=== PATIENT | female | born 1940 | race Caucasian/White ===

== ENCOUNTER → 2016-11-30 | Outpatient (REF) | payer MEDICARE ==
[~2016-11-30] MED LIST: ASPI1TAB PO; CRES5TAB PO; LISI-538 PO; NEXI40CA PO; VITA100037 PO
[2016-11-30 12:09] LABS: MEAN CORPUSCULAR HEMOGLOBIN 29.7 pg (27.0-33.0); MEAN CORPUSCULAR HGB CONC 31.6 g/dl (32.0-36.5); RED CELL DISTRIBUTION WIDTH 13.5 % (11.5-14.5); WHITE BLOOD COUNT 4.2 K/mm3 (4.0-10.0)
[2016-11-30 12:41] LABS: ALBUMIN 3.7 GM/DL (3.2-5.2); ALBUMIN/GLOBULIN RATIO 1.03 (1.00-1.93); ALKALINE PHOSPHATASE 66 U/L (45-117); ALT/SGPT 29 U/L (12-78); ANION GAP 8 MEQ/L (8-16); AST/SGOT 23 U/L (15-37); BILIRUBIN,TOTAL 0.5 MG/DL (0.2-1.0); BLOOD UREA NITROGEN 12 MG/DL (7-18); CALCIUM LEVEL 9.2 MG/DL (8.8-10.2); CARBON DIOXIDE LEVEL 31 MEQ/L (21-32); CHLORIDE LEVEL 103 MEQ/L (98-107); CHOLESTEROL LEVEL 128 MG/DL (<200); CREATININE FOR GFR 0.92 MG/DL (0.55-1.02); GLOMERULAR FILTRATION RATE > 60.0 (>39); GLUCOSE, FASTING 89 MG/DL (83-110); SODIUM LEVEL 142 MEQ/L (136-145); TOTAL PROTEIN 7.3 GM/DL (6.4-8.2); TRIGLYCERIDES LEVEL 99 MG/DL (<150)
[2016-11-30 12:43] LABS: POTASSIUM SERUM 5.2 MEQ/L (3.5-5.1)
== END ==
LOC: M LABDRAW1 11:24
PROVIDERS: ATTEND Family Medicine
DX: I10 Essential (primary) hypertension (principal); L65.9 Nonscarring hair loss, unspecified

== ENCOUNTER → 2016-12-03 | Outpatient (CLI) | payer MEDICARE ==
--- NOTE | 2016-12-03 17:28 | REPMRS ---
Patient History The patient states she has not had a clinical breast exam in over a year. Patient is postmenopausal, has history of other cancer at age 73, and has history of cancer in the left breast at age 65. Family history of prostate cancer in brother at age 75. Malignant quadrectomy of the left breast, 2006. Radiation therapy of the left breast, 2006. Took tamoxifen for 5 years. Digital Woman Screen Mammo: December 03, 2016 - Exam #: [id number] Bilateral CC and MLO view(s) were taken. Technologist: Ely Shepard, Technologist Prior study comparison: November 12, 2015, digital woman screen mammo performed at [facility]. October 07, 2014, digital woman screen mammo performed at [facility]. FINDINGS: There are scattered fibroglandular densities. There has been no change in the appearance of the mammogram from the prior studies. There is a mild amount of residual fibroglandular tissue which is fairly symmetric. There is no interval development of dominant mass, architectural distortion, or clustered microcalcification suggestive of malignancy. ASSESSMENT: BI-RADS/ACR category 1 mammogram. Negative. Recommendation Routine screening mammogram in 1 year (for women over age 40). This mammogram was interpreted with the aid of an FDA-approved computer-aided dectection system. Electronically Signed By: Jeffrey Martinez MD 12/03/16 [id number]
== END ==
LOC: M WHC 14:17
PROVIDERS: ATTEND Family Medicine
DX: Z12.31 Encounter for screening mammogram for malignant neoplasm of breast (principal); Z85.3 Personal history of malignant neoplasm of breast; Z79.810 Long term (current) use of selective estrogen receptor modulators (SERMs)

== ENCOUNTER → 2017-12-06 | Outpatient (CLI) | payer MEDICARE | LOC: M WHC 10:46 | DX: Z12.31 Encounter for screening mammogram for malignant neoplasm of breast (principal); Z78.0 Asymptomatic menopausal state; Z85.3 Personal history of malignant neoplasm of breast; Z80.42 Family history of malignant neoplasm of prostate | CPT/HCPCS: 77067 ==

== ENCOUNTER → 2018-12-07 | Outpatient (CLI) | payer MEDICARE ==
[~2018-12-07] MED LIST changes: -VITA100037 PO; +VITA100067 PO
--- NOTE | 2018-12-07 18:19 | REPMRS ---
Patient History The patient states she has not had a clinical breast exam in over a year. Family history of prostate cancer at age 75 in brother. Malignant quadrectomy of the left breast, 2006. Radiation therapy of the left breast, 2006. Took tamoxifen for 5 years. Digital Woman Screen Mammo: December 07, 2018 - Exam #: [id number] Bilateral CC and MLO view(s) were taken. Technologist: Tita Olvera, Technologist Prior study comparison: December 06, 2017, digital woman screen mammo performed at [facility]. December 03, 2016, digital woman screen mammo performed at [facility]. FINDINGS: There are scattered fibroglandular densities. There has been no change in the appearance of the mammogram from the prior studies. There is a mild amount of residual fibroglandular tissue which is fairly symmetric. There is no interval development of dominant mass, architectural distortion, or clustered microcalcification suggestive of malignancy. Prior lumpectomy changes in the left breast stable with scar, retraction and clips as before. Scattered lymph nodes are seen in the axillae. There are benign bilateral arterial calcifications noted. 3-D tomosynthesis shows no additional findings. No significant changes when compared with prior studies. Assessment: BI-RADS/ACR category 2 mammogram. Benign Findings. Recommendation Routine screening mammogram in 1 year (for women over age 40). This mammogram was interpreted with the aid of an FDA-approved computer-aided dectection system. A. Negative x-ray reports should not delay biopsy if a dominant or clinically suspicious mass is present. B. Four to eight percent of cancers are not identified by mammography. C. Adenosis and dense breast may obscure an underlying neoplasm. Electronically Signed By: Kapil Paz MD 12/07/18 [id number]
== END ==
LOC: M WHC 10:37
PROVIDERS: ATTEND Family Medicine
DX: Z12.31 Encounter for screening mammogram for malignant neoplasm of breast (principal)

== ENCOUNTER → 2019-01-18 | Outpatient (REF) | payer MEDICARE ==
[~2019-01-18] MED LIST changes: -ASPI1TAB PO; +ASPI81TA26 PO
== END ==
LOC: M LAB LCGH 10:29
PROVIDERS: ATTEND Physician Assistant
DX: C44.81 Basal cell carcinoma of overlapping sites of skin (principal)

== ENCOUNTER → 2020-06-26 | Outpatient (CLI) | payer MEDICARE ==
--- NOTE | 2020-06-26 16:08 | REPMRS ---
Patient History The patient states she has not had a clinical breast exam in over a year. Family history of prostate cancer at age 75 in brother. Malignant quadrectomy of the left breast, 2006. Radiation therapy of the left breast, 2006. Took tamoxifen for 5 years. 3D TOMOSYNTHESIS WAS PERFORMED. NAZANIN Perry. Digital Woman Screen Mammo: June 26, 2020 - Exam #: [id number] Bilateral CC and MLO view(s) were taken. Technologist: Sally Mann, Technologist Prior study comparison: December 07, 2018, bilateral digital woman screen mammo performed at [facility]. December 06, 2017, digital woman screen mammo performed at [facility]. FINDINGS: There are scattered fibroglandular densities. There has been no change in the appearance of the mammogram from the prior studies. There is a mild amount of residual fibroglandular tissue which is fairly symmetric. There is no interval development of dominant mass, architectural distortion, or clustered microcalcification suggestive of malignancy. Assessment: BI-RADS/ACR category 1 mammogram. Negative Mammogram. Recommendation Routine screening mammogram in 1 year (for women over age 40). This mammogram was interpreted with the aid of an FDA-approved computer-aided dectection system. Electronically Signed By: Jeffrey Martinez MD 06/26/20 [id number]
== END ==
LOC: M WHC 14:22
PROVIDERS: ATTEND Family Medicine
DX: Z12.31 Encounter for screening mammogram for malignant neoplasm of breast (principal); Z80.42 Family history of malignant neoplasm of prostate; Z85.3 Personal history of malignant neoplasm of breast; Z92.3 Personal history of irradiation; Z92.29 Personal history of other drug therapy

== ENCOUNTER 2021-08-23 08:59 | Emergency (ER) | payer MEDICARE ==
[~2021-08-23] VITALS: Ht 162.6 cm; Wt 75.6 kg
[~2021-08-23 08:59] MED LIST changes: -LISI-538 PO; +LISI20TA33 PO
--- OUTSIDE RECORDS SUMMARY | 2021-08-23 09:06 | CCD ---
Author Author [facility] Organization [facility] Address Unknown Phone Unavailable Care Team Providers Care Transportation Worker Name Role Phone Jonny FALL MD Unavailable Unavailable Jonny FALL MD Unavailable Unavailable Jonny FALL MD Unavailable Unavailable Jonny FALL MD Unavailable Unavailable Jonny FALL MD Unavailable Unavailable Jonny FALL MD Unavailable Unavailable Jonny FALL MD Unavailable Unavailable Jonny FALL MD Unavailable Unavailable Jonny FALL MD Unavailable Unavailable Jonny FALL MD Unavailable Unavailable Jonny FALL MD Unavailable Unavailable Jonny FALL MD Unavailable Unavailable Jonny FALL MD Unavailable Unavailable Jonny FALL MD Unavailable Unavailable Jonny FALL MD Unavailable Unavailable Jonny FALL MD Unavailable Unavailable Jonny FALL MD Unavailable Unavailable Jonny FALL MD Unavailable Unavailable Jonny FALL MD Unavailable Unavailable Jonny FALL MD Unavailable Unavailable Jonny FALL MD Unavailable Unavailable Jonny FALL MD Unavailable Unavailable Jonny FALL MD Unavailable Unavailable Jonny FALL MD Unavailable Unavailable Taya, Brenna PA Unavailable Unavailable Taya, Brenna PA Unavailable Unavailable Taya, Brenna PA Unavailable Unavailable Taya, Brenna PA Unavailable Unavailable Taya, Brenna PA Unavailable Unavailable Taya, Brenna PA Unavailable Unavailable Taya, Brenna PA Unavailable Unavailable Taya, Brenna PA Unavailable Unavailable Taya, Brenna PA Unavailable Unavailable TayaBrenna Unavailable Unavailable Re-disclosure Warning The records that you are about to access may contain information from federally-assisted alcohol or drug abuse programs. If such information is present, then the following federally mandated warning applies: This information has been disclosed to you from records protected by federal confidentiality rules (42 CFR part 2). The federal rules prohibit you from making any further disclosure of this information unless further disclosure is expressly permitted by the written consent of the person to whom it pertains or as otherwise permitted by 42 CFR part 2. A general authorization for the release of medical or other information is NOT sufficient for this purpose. The Federal rules restrict any use of the information to criminally investigate or prosecute any alcohol or drug abuse patient.The records that you are about to access may contain highly sensitive health information, the redisclosure of which is protected by Article 27-F of the [facility] Public Health law. If you continue you may have access to information: Regarding HIV / AIDS; Provided by facilities licensed or operated by the [facility] Office of Mental Health; or Provided by the [facility] Office for People With Developmental Disabilities. If such information is present, then the following [facility] mandated warning applies: This information has been disclosed to you from confidential records which are protected by state law. State law prohibits you from making any further disclosure of this information without the specific written consent of the person to whom it pertains, or as otherwise permitted by law. Any unauthorized further disclosure in violation of state law may result in a fine or half-way sentence or both. A general authorization for the release of medical or other information is NOT sufficient authorization for further disc losure. Family History Family Member Name Family Member Gender Family Member Status Date o f Status Description Data Source(s) Unknown Male Problem MEDENT ([facility]) Unknown Male Problem [facility] ([facility]) Unknown Male Problem [facility] ([facility]) Unknown Male Problem [facility]ENT ([facility]) Encounters Encounter Providers Location Date Indications Data Source(s ) Outpatient Attender: RUCHI FALL MD 08/23 07:55:48 AM EST - 08/23/2021 08:33:59 AM EST [facility] ([facility] ) Outpatient [address] [address] 05/22/2021 12:00:00 AM EDT eCW1 ([facility]) Outpatient Attender: Brenna CLARK 0 01/12/2021 02:51:11 PM EDT - 01/12/2021 03:29:18 PM EDT [facility] ([facility]) Immunizations Vaccine Date Status Description Data Source(s) COVID-19 VACCINE Moderna 03/09/2021 12:00:00 AM EDT completed [facility]IS Vaccine Series Complete: YESThis Data wa s Submitted to [facility] Via [employer] COVID-19 VACCINE Moderna 02/06/2021 12:00:00 AM EDT completed [facility] Vaccine Series Complete: NOThis Data was Submitted to [facility] Via [employer] Medications Medication Brand Name Start Date Product Form Dose Route Admi nistrative Instructions Pharmacy Instructions Status Indications Reaction Description Data Source(s) alclometasone dipropionate 0.0005 MG/MG Topical Ointment Alclometasone Dipropionate 0.05 % Alclometasone Dipropionate 0.05 % 05/22/2021 12:00:00 AM EDT 1.0 {application} active Alclom etasone Dipropionate 0.05 % eCW1 ([facility]) Triamcinolone Acetonide 1 MG/ML Topical Cream Triamcin olone Acetonide 0.1 % Triamcinolone Acetonide 0.1 % 01/30/2021 12:00:00 AM EDT 1.0 {appli cation} active Triamcinolone Acetonide 0 .1 % eCW1 ([facility]) Insurance Providers Payer name Policy type / Coverage type Policy ID Covered republican ID Covered republican's relationship to alas Policy Alas Plan Information [id number] WYE3 [id number] A [facility] (ak) Medigap Part B [id number] Self MEDICARE COMPLETE [id number] SP [id number] [employer] [id number] Self [id number] [employer]. [id number] Self [id number] [employer] [id number] Self [id number] MEDICARE COMPLETE [id number] SP [id number] MEDICARE COMPLETE-UHC O [id number] S [id number] MEDICARE COMPLETE [id number] SP [id number] MEDICARE COMPLETE-UHC O [id number] S [id number] TODAYS OPTIONS [id number] [place] [id number] MEDICARE COMPLETE-UHC O [id number] S [id number] MEDICARE COMPLETE [id number] SP [id number] EXCELLUS BCBS S [id number] S P [id number] [place] 280/[id number] SP [id number] [facility] Commercial [id number] Self MEDICARE COMPLETE [id number] SP [id number] MEDICARE COMPLETE [id number] SP [id number] Problems, Conditions, and Diagnoses Code Display Name Description Problem Type Effective Dates Data Source(s) L40.8 [id number] Sebopsoriasis Problem 05/22/2021 12:00:00 AM EDT eCW1 ([facility]) Surgeries/Procedures No Information Results ID Date Data Source [id number] 01/14/2021 06:49:00 PM EDT [facility] Name Value Range Interpretation Code Description Data Zulay rce(s) Supporting Document(s) SARS-CoV-2 IgG Serum <0.20 AU/mL <1.00 [facility] A result less than 1.00 AU/mL is conside red to be negative. PositiveIgG antibody results are often present later in the infectious process(from 7 days onward). Results will be reported to government agenciesas required.The [employer] DZ-Lite SARS-CoV-2 IgG CLIA assay has received EmergencyUse Authorization (EUA). We will continue to follow federal and staterequirements for COVID-19 reporting. This test was developed and itsperformance characteristics determined by [employer] Ithas not been reviewed, cleared or approved by the U.S. Food and DrugAdministration (FDA) but has been given emergency use authorization.This test is used for clinical purposes. It should not be regarded asinvestigational or for research. Results should be used in conjunctionwith clinical findings and should not form the sole basis for adiagnosis or treatment decision. Methods: SARS-CoV-2 IgG:Chemiluminescent Immunoassay. Procedure Social History Code Duration Value Status Description Data Source(s ) Smoking 05/22/2021 12:00:00 AM EDT UNK completed eCW1 ([facility]) Vital Signs ID Date Data Source UNK Name Value Range Interpretation Code Description Data Source(s) Body weight 165 [lb_av] 165 [lb_av] eCW1 ([facility]) Body weight 74.84 kg 74.84 kg eCW1 ([facility]) Body height [in_i] eCW1 ([facility]) Body mass index (BMI) [Ratio] 28.32 kg/m2 28.32 kg/m2 eCW1 ([facility]) Systolic blood pressure 126 mm[Hg] 126 mm[Hg] e CW1 ([facility]) Diastolic blood pressure 74 mm[Hg] 74 mm[Hg] eCW1 ([facility]) Patient Treatment Plan of Care Planned Activity Planned Date Details Description Data Source (s) alclometasone dipropionate 0.0005 MG/MG Topical Ointme nt 05/22/2021 12:00:00 AM EDT eCW1 ([facility])
--- OUTSIDE RECORDS SUMMARY | 2021-08-23 09:06 | CCD ---
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 593480 04 ALLERGIES Allergen (clinical drug ingredient) Drug/Non Drug Allergy do cumented on EMR Reaction Allergy Type Onset Date Status codeine Codeine Sulfate([facility] Code:[address]-95) Nausea/Vomiting Dr jaquan Allergy Active Sulfa (for allergy use only) Hives Drug Allergy Active ENCOUNTERS from 1940 to 2021-05-25 Encounter Location Date Provider Diagnosis [facility] D[facility] [address] [place] [address] [place] [address] May, Lorena Alexander Sebopsoriasis L40.8 IMMUNIZATIONS Vaccine Route Administration Date Status TDAP VFC 0.5mL Boostrix IM Intramuscular Aug 08, 2017 Adminis tered SOCIAL HISTORY Tobacco Use: Social History Observation Description Date Details (start date - stop date) never smoker Sex Assigned At : Social History Observation Description Sex Assigned At Unknown Language: Question Answer Notes Languages spoken: Thai Hindu: Question Answer Notes Hindu No hoahaoism beliefs that would impact health care. Tobacco Use: Question Answer Notes Are you a: never smoker REASON FOR REFERRAL No Information VITAL SIGNS Weight 165 lbs May, Weight-kg 74.84 kg May, Height 5'4" in May, BMI 28.32 kg/m2 May, Blood pressure systolic 126 mm Hg May, Blood pressure diastolic 74 mm Hg May, MEDICATIONS Medication SIG (Take, Route, Frequency, Duration) Notes Start Da te End Date Status Rosuvastatin Calcium 5 MG 1 tablet Orally 1 tab every other day Not-Taking Alclometasone Dipropionate 0.05 % 1 application Night Auditor ally Twice a day for 5 days May, Active Crestor prn Active Triamcinolone Acetonide 0.1 % 1 application Externally Twice a day to R wrist for 14 days Jan, Active NexIUM 22.3 2 tab Orally once a day Active Lisinopril 10 20 mg 1 tab oral Daily Active Augmentin 875-125 MG 1 tablet Orally every 12 hrs for 10 day(s) Jul, Not-Taking Alendronate Sodium 70 MG 1 tablet orally once a week Not-Taking Vitamin D-3 1000 UNIT 1 capsule Orally Daily Active Aspirin 81 81 MG 1 tablet Orally Once a day for 30 day(s) Active PROCEDURES No Information RESULTS No Results REASON FOR VISIT rash on rt eyelid MEDICAL (GENERAL) HISTORY Type Description Date Medical History HTN Medical History GERD Medical History Hypercholesterolnemia Medical History Breast Cancer 2006 Medical History Melanoma Surgical History Tonsillectomy Surgical History hysterectomy Surgical History cholecystectomy Goals Section No Information Health Concerns No Information MEDICAL EQUIPMENT No Information MENTAL STATUS No Information FUNCTIONAL STATUS No Information ASSESSMENTS Encounter Date Diagnosis Assessment Notes Treatment Notes Treatm ent Clinical Notes May, Sebopsoriasis (ICD-10 - L40.8) PLAN OF TREATMENT Medication Medication Name Sig Start Date Stop Date Alclometasone Dipropionate 0.05 % 1 application Night Auditor ally Twice a day for 5 days May, Next Appt Details Provider Name:Lorena Alexander, 10:15:00 AM, [address], , [place], [place], [facility], Insurance Providers Payer Name Payer Address Payer Phone Insured Name Patient Relati onship to Insured Coverage Start Date Coverage End Date MEDICARE COMPLETE [facility] [address] [address] [facility] [phone] DENISSE MOTTA self
--- OUTSIDE RECORDS SUMMARY | 2021-08-23 10:22 | CCD ---
Author Author [facility] Organization [facility] Address Unknown Phone Unavailable Care Team Providers Care Ice Seller Name Role Phone Jonny FALL MD Unavailable [...] is protected by Article 27-F of the [facility] Public Health law. If you continue you may have access to information: Regarding HIV / AIDS; Provided by facilities licensed or operated by the [facility] Office of Mental Health; or Provided by the [facility] Office for People With Developmental Disabilities. If such information is present, then the following [facility] mandated warning applies: This information has [...] law may result in a fine or fdc sentence or both. A general authorization for the release of medical or other information is NOT sufficient authorization for further disc losure. Family History Family Member Name Family Member Gender Family Member Status Date o f Status Description Data Source(s) Unknown Male Problem MEDENT ([facility]) Unknown Male Problem [facility]ENT ([facility]) Unknown Male Problem [facility] ([facility]) Unknown Male Problem [facility] ([facility]) Encounters Encounter Providers Location Date Indications Data Source(s ) Outpatient Attender: RUCHI FALL MD 08/23 07:55:48 AM EST - 08/23/2021 08:33:59 AM EST [facility] ([facility] ) [place]patient [address] [place] [address] 05/22/2021 12:00:00 AM EDT eCW1 ([facility]) Outpatient Attender: Brenna CLARK 0 01/12/2021 02:51:11 PM EDT - 01/12/2021 03:29:18 PM EDT [facility] ([facility]) Immunizations Vaccine Date Status Description Data Source(s) COVID-19 VACCINE Moderna 03/09/2021 12:00:00 AM EDT completed [facility] Vaccine Series Complete: YESThis Data wa s Submitted to [facility] Via [employer]. COVID-19 VACCINE Moderna 02/06/2021 12:00:00 AM EDT completed [facility] Vaccine Series Complete: NOThis Data was Submitted to [facility] Via [employer]. Medications Medication Brand Name Start Date Product Form Dose Route Admi nistrative Instructions Pharmacy Instructions Status Indications Reaction Description Data Source(s) alclometasone dipropionate 0.0005 MG/MG Topical Ointment Alclometasone Dipropionate 0.05 % Alclometasone Dipropionate 0.05 % 05/22/2021 12:00:00 AM EDT 1.0 {application} active Alclom etasone Dipropionate 0.05 % eCW1 ([facility]) Triamcinolone Acetonide 1 MG/ML Topical Cream Triamcin olone Acetonide 0.1 % Triamcinolone Acetonide 0.1 % 01/30/2021 12:00:00 AM EDT 1.0 {appli cation} active Triamcinolone Acetonide 0 .1 % eCW1 ([facility]) Insurance Providers Payer name Policy type / Coverage type Policy ID Covered green party ID Covered green party's relationship to alas Policy Alas Plan Information [id number] WYE3 [id number] A [facility] ([place]) Medigap Part B [id number] Self MEDICARE COMPLETE [id number] SP [id number] [employer] [id number] Self [id number] [employer] [id number] Self [id number] [employer] [id number] Self [id number] MEDICARE COMPLETE [id number] SP [id number] MEDICARE COMPLETE-UHC O [id number] S [id number] MEDICARE COMPLETE [id number] SP [id number] MEDICARE COMPLETE-UHC O [id number] S [id number] TODAYS OPTIONS [id number] [place] [id number] MEDICARE COMPLETE-UHC O [id number] S [id number] MEDICARE COMPLETE [id number] SP [id number] [employer] BCBS S [id number] S P [id number] BCBS OF [place] 280/780 [id number] SP [id number] [facility] Commercial [id number] Self MEDICARE COMPLETE [id number] SP [id number] MEDICARE COMPLETE [id number] SP [id number] Problems, Conditions, and Diagnoses Code Display Name Description Problem Type Effective Dates Data Source(s) L40.8 [id number] Sebopsoriasis Problem 05/22/2021 12:00:00 AM EDT eCW1 ([facility]) Surgeries/Procedures No Information Results ID Date Data Source [id number] 01/14/2021 06:49:00 PM EDT [facility] Name Value Range Interpretation Code Description Data Zulay rce(s) Supporting Document(s) SARS-CoV-2 IgG Serum <0.20 AU/mL <1.00 [facility] A result less than 1.00 AU/mL is conside red to be negative. PositiveIgG antibody results are often present later in the infectious process(from 7 days onward). Results will be reported to government agenciesas required.The [employer] DZ-Lite SARS-CoV-2 IgG CLIA assay has received EmergencyUse Authorization (EUA). We will continue to follow federal and staterequirements for COVID-19 reporting. This test was developed and itsperformance characteristics determined by [employer]. Ithas not been reviewed, cleared or approved [...] 05/22/2021 12:00:00 AM EDT UNK completed eCW1 ([facility]) Vital Signs ID Date Data Source UNK Name Value Range Interpretation Code Description Data Source(s) Body weight 165 [lb_av] 165 [lb_av] eCW1 ([facility]) Body weight 74.84 kg 74.84 kg eCW1 ([facility]) Body height [in_i] eCW1 ([facility]) Body mass index (BMI) [Ratio] 28.32 kg/m2 28.32 kg/m2 eCW1 ([facility]) Systolic blood pressure 126 mm[Hg] 126 mm[Hg] e CW1 ([facility]) Diastolic blood pressure 74 mm[Hg] 74 mm[Hg] eCW1 ([facility]) Patient Treatment Plan of Care Planned Activity Planned Date Details Description Data Source (s) alclometasone dipropionate 0.0005 MG/MG Topical Ointme nt 05/22/2021 12:00:00 AM EDT eCW1 ([facility])
[2021-08-23 10:25] LABS: BASO # 0.1 10^3/uL (0.0-0.2); BASO % 1.4 % (0.0-1.0); EOS # 0.1 10^3/uL (0.0-0.5); EOS % 1.6 % (0.0-3.0); HEMATOCRIT 47.6 % (36.0-47.0); HEMOGLOBIN 14.8 g/dl (12.0-15.5); LYMPH # 1.2 10^3/uL (1.5-5.0); LYMPH % 18.1 % (24.0-44.0); MEAN CORPUSCULAR HEMOGLOBIN 28.8 pg (27.0-33.0); MEAN CORPUSCULAR HGB CONC 31.1 g/dl (32.0-36.5); MEAN CORPUSCULAR VOLUME 92.6 fl (80.0-96.0); MONO # 0.6 10^3/uL (0.0-0.8); MONO % 8.6 % (2.0-8.0); NEUTROPHILS # 4.5 10^3/uL (1.5-8.5); PLATELET COUNT, AUTOMATED 248 10^3/uL (150-450); RED BLOOD COUNT 5.14 10^6/uL (4.00-5.40); WHITE BLOOD COUNT 6.4 10^3/uL (4.0-10.0)
--- NOTE | 2021-08-23 10:44 | REP ---
INDICATION: cough. COMPARISON: PA chest with ribs 10/14/2014. TECHNIQUE: AP portable seated FINDINGS: Lungs are well inflated. CP angles are sharply defined. Subtle patchy atelectasis or infiltrate above the right diaphragm. Some minor right infrahilar patchy density as well. Lung schmidt are otherwise clear. There is hyperinflation and emphysematous changes mid and upper lung zones. Heart size not enlarged. The aorta is calcified at the arch and mildly tortuous but unchanged. Airway midline. Bones demineralized. There are surgical clips in the left axilla and anterior left chest wall from prior breast surgery and axillary lymph node dissection. No free air under the diaphragm. IMPRESSION: 1. Patchy right base atelectasis or infiltrates above the right diaphragm in the infrahilar region. No dense consolidation or effusion. 2. Some bullous emphysematous changes mid and upper lung zones. 3. No cardiomegaly or pulmonary edema. A tortuous calcified aorta noted. 4. Bones demineralized. <Electronically signed by Kapil Paz > 08/23/21 [id number]
[2021-08-23 10:50] LABS: BLOOD UREA NITROGEN 10 MG/DL (7-18); CALCIUM LEVEL 9.8 MG/DL (8.8-10.2); CARBON DIOXIDE LEVEL 29 MEQ/L (21-32); CHLORIDE LEVEL 106 MEQ/L (98-107); CK-MB VALUE MASS 1.4 NG/ML (<3.6); CPK CREATINE PHOSPHOKINASE 191 U/L (26-192); CREATININE FOR GFR 0.96 MG/DL (0.55-1.30); GLOMERULAR FILTRATION RATE 59.2 (>32); GLUCOSE, FASTING 92 MG/DL (70-100); MB/CK RELATIVE INDEX 0.73 (< OR =4); SODIUM LEVEL 141 MEQ/L (136-145); TROPONIN I < 0.02 NG/ML (< 0.10)
[2021-08-23 11:40] VITALS: BP 157/81
--- NOTE | 2021-08-23 20:20 | ECGEPIP ---
[facility] - ED Test Date: 2021-08-23 Pat Name: DENISSE MOTTA Department: Room: - Gender: Female Partnership Marketing Manager: DANETTE : 1940 Requested By: Larry Puga Order Number: [id number] Reading MD: Larry Mart Measurements Intervals [place] Rate: 68 P: 13 UT: 168 QRS: -41 QRSD: 88 T: 23 QT: 428 QTc: 455 Interpretive Statements Normal sinus rhythm Left axis deviation BASELINE ARTIFACT AFFECTS INTERPRETATION SIMILAR TO 11/30/15 Electronically Signed on 08-23-2021 20:20:04 EST by Larry Mart
== END 2021-08-23 12:03 | disposition home or self-care (01) ==
LOC: M ED 08:59
DX: J00 Acute nasopharyngitis [common cold] (principal); I70.0 Atherosclerosis of aorta; J43.9 Emphysema, unspecified; R93.89 Abnormal findings on diagnostic imaging of other specified body structures; I10 Essential (primary) hypertension; E78.5 Hyperlipidemia, unspecified; K21.9 Gastro-esophageal reflux disease without esophagitis; Z85.3 Personal history of malignant neoplasm of breast; Z79.899 Other long term (current) drug therapy; Z88.2 Allergy status to sulfonamides; Z88.5 Allergy status to narcotic agent

== ENCOUNTER → 2022-07-30 | Outpatient (CLI) | payer MEDICARE | LOC: M WHC 11:19 | PROVIDERS: ATTEND Family Medicine | DX: Z12.31 Encounter for screening mammogram for malignant neoplasm of breast (principal); M81.0 Age-related osteoporosis without current pathological fracture ==

== ENCOUNTER → 2022-08-04 | Outpatient (CLI) | payer MEDICARE | LOC: M WHC 09:24 | PROVIDERS: ATTEND Family Medicine | DX: N64.4 Mastodynia (principal) | CPT/HCPCS: 76642; 77066; G0279 ==

== ENCOUNTER → 2022-08-13 | Outpatient (REF) | payer MEDICARE ==
[2022-08-13 10:41] LABS: HEMATOCRIT 45.7 % (36.0-47.0); HEMOGLOBIN 13.9 g/dl (12.0-15.5); MEAN CORPUSCULAR HEMOGLOBIN 28.3 pg (27.0-33.0); MEAN CORPUSCULAR HGB CONC 30.4 g/dl (32.0-36.5); MEAN CORPUSCULAR VOLUME 92.9 fl (80.0-96.0); PLATELET COUNT, AUTOMATED 221 10^3/uL (150-450); RED BLOOD COUNT 4.92 10^6/uL (4.00-5.40); WHITE BLOOD COUNT 6.1 10^3/uL (4.0-10.0)
[2022-08-13 11:22] LABS: ALBUMIN 3.4 GM/DL (3.2-5.2); BILIRUBIN,TOTAL 0.3 MG/DL (0.2-1.0); CALCIUM LEVEL 9.6 MG/DL (8.8-10.2); CHOLESTEROL RISK RATIO 3.377 (<5); CREATININE FOR GFR 0.96 MG/DL (0.55-1.30); GLOMERULAR FILTRATION RATE 59.1 (>32); POTASSIUM SERUM 4.4 MEQ/L (3.5-5.1); TOTAL PROTEIN 7.4 GM/DL (6.4-8.2)
[2022-08-13 12:10] LABS: TOTAL 25(OH) VITAMIN D 32.3 NG/ML (30.0-100.0)
== END ==
LOC: M PLALAB 09:53
PROVIDERS: ATTEND Family Medicine
DX: E55.9 Vitamin D deficiency, unspecified (principal); I10 Essential (primary) hypertension

== ENCOUNTER → 2022-08-18 | Outpatient (REF) | payer MEDICARE | LOC: M SFHCDERM 14:42 | PROVIDERS: ATTEND Physician Assistant | DX: L82.1 Other seborrheic keratosis (principal); C44.702 Unspecified malignant neoplasm of skin of right lower limb, including hip | CPT/HCPCS: 11102; 11103; 17000; 17003; 17110; 88305; G0463 ==

== ENCOUNTER → 2022-08-24 | Outpatient (CLI) | payer MEDICARE ==
[~2022-08-24] MED LIST changes: +**SFHN** LIDOCAINE 1% MDV 20ML VIAL ONE; +**SFHN** SODIUM BICARBONATE 8.4% 10MEQ 10ML VIAL ONE
[2022-08-24 10:48] VITALS: BP 112/64
== END ==
LOC: M WHCPRO 09:35
PROVIDERS: ATTEND Family Medicine
DX: D48.61 Neoplasm of uncertain behavior of right breast (principal)

== ENCOUNTER → 2022-09-29 | Outpatient (CLI) | payer MEDICARE ==
[~2022-09-29] MED LIST changes: -**SFHN** LIDOCAINE 1% MDV 20ML VIAL ONE; -**SFHN** SODIUM BICARBONATE 8.4% 10MEQ 10ML VIAL ONE
[2022-09-29 14:59] LABS: BASO # 0.1 10^3/uL (0.0-0.2); BASO % 1.6 % (0.0-1.0); EOS # 0.1 10^3/uL (0.0-0.5); EOS % 2.2 % (0.0-3.0); HEMATOCRIT 44.7 % (36.0-47.0); HEMOGLOBIN 13.5 g/dl (12.0-15.5); LYMPH # 1.6 10^3/uL (1.5-5.0); LYMPH % 24.6 % (24.0-44.0); MEAN CORPUSCULAR HEMOGLOBIN 27.8 pg (27.0-33.0); MEAN CORPUSCULAR HGB CONC 30.2 g/dl (32.0-36.5); MEAN CORPUSCULAR VOLUME 92.2 fl (80.0-96.0); MONO # 0.7 10^3/uL (0.0-0.8); MONO % 11.3 % (2.0-8.0); NEUTROPHILS # 3.8 10^3/uL (1.5-8.5); PLATELET COUNT, AUTOMATED 200 10^3/uL (150-450); RED BLOOD COUNT 4.85 10^6/uL (4.00-5.40); WHITE BLOOD COUNT 6.4 10^3/uL (4.0-10.0)
[2022-09-29 15:21] LABS: ALBUMIN 3.4 G/DL (3.2-5.2); BILIRUBIN,TOTAL 0.3 MG/DL (0.3-1.2); CREATININE FOR GFR 0.95 MG/DL (0.55-1.30); GLOMERULAR FILTRATION RATE 59.8 (>32); TOTAL PROTEIN 7.2 G/DL (5.7-8.2)
== END ==
LOC: M PLALAB 10:39
PROVIDERS: ATTEND Family Medicine
DX: R10.12 Left upper quadrant pain (principal)

== ENCOUNTER → 2022-10-05 | Outpatient (CLI) | payer MEDICARE | LOC: M PLAIMG 10:00 | PROVIDERS: ATTEND Family Medicine | DX: K57.30 Diverticulosis of large intestine without perforation or abscess without bleeding (principal); K43.9 Ventral hernia without obstruction or gangrene; K76.89 Other specified diseases of liver; N28.1 Cyst of kidney, acquired; M51.36 Other intervertebral disc degeneration, lumbar region; M51.37 Other intervertebral disc degeneration, lumbosacral region; M46.98 Unspecified inflammatory spondylopathy, sacral and sacrococcygeal region; R10.12 Left upper quadrant pain ==

== ENCOUNTER → 2023-06-21 | Outpatient (CLI) | payer MEDICARE | LOC: M PLAIMG 14:12 | PROVIDERS: ATTEND Family Medicine | DX: M25.562 Pain in left knee (principal) ==

== ENCOUNTER → 2023-08-01 | Outpatient (CLI) | payer MEDICARE | LOC: M WHC 14:41 | PROVIDERS: ATTEND Family Medicine | DX: Z12.31 Encounter for screening mammogram for malignant neoplasm of breast (principal) ==

== ENCOUNTER → 2024-01-16 | Outpatient (CLI) | payer OTHER ==
[2024-01-16 15:35] LABS: BASO # 0.1 10^3/uL (0.0-0.2); BASO % 1.5 % (0.0-1.0); EOS # 0.1 10^3/uL (0.0-0.5); EOS % 1.5 % (0.0-3.0); HEMATOCRIT 44.1 % (36.0-47.0); HEMOGLOBIN 13.7 g/dl (12.0-15.5); LYMPH # 1.7 10^3/uL (1.5-5.0); LYMPH % 25.4 % (24.0-44.0); MEAN CORPUSCULAR HEMOGLOBIN 29.1 pg (27.0-33.0); MEAN CORPUSCULAR HGB CONC 31.1 g/dl (32.0-36.5); MEAN CORPUSCULAR VOLUME 93.6 fl (80.0-96.0); MONO # 0.6 10^3/uL (0.0-0.8); NEUTROPHILS # 4.2 10^3/uL (1.5-8.5); NEUTROPHILS % 61.7 % (36.0-66.0); PLATELET COUNT, AUTOMATED 236 10^3/uL (150-450); RED BLOOD COUNT 4.71 10^6/uL (4.00-5.40); WHITE BLOOD COUNT 6.9 10^3/uL (4.0-10.0)
[2024-01-16 15:42] LABS: ALBUMIN 3.8 G/DL (3.2-5.2); ALKALINE PHOSPHATASE 67 U/L (46-116); ALT/SGPT 23 U/L (7.0-40); AST/SGOT 22 U/L (<34); BILIRUBIN,TOTAL 0.4 MG/DL (0.3-1.2); BLOOD UREA NITROGEN 15 MG/DL (9-23); CALCIUM LEVEL 9.8 MG/DL (8.3-10.6); CARBON DIOXIDE LEVEL 31 MMOL/L (20-31); CHLORIDE LEVEL 103 MMOL/L (98-107); CREATININE FOR GFR 0.92 MG/DL (0.55-1.30); GLOMERULAR FILTRATION RATE > 60.0 (>32); GLUCOSE, FASTING 91 MG/DL (74-106); POTASSIUM SERUM 4.6 MMOL/L (3.5-5.1); SODIUM LEVEL 138 MMOL/L (136-145); TOTAL PROTEIN 7.1 G/DL (5.7-8.2)
== END ==
LOC: M PLALAB 11:29
PROVIDERS: ATTEND Family Medicine
DX: K57.80 Diverticulitis of intestine, part unspecified, with perforation and abscess without bleeding (principal)

== ENCOUNTER → 2024-01-30 | Outpatient (CLI) | payer OTHER ==
[~2024-01-30] MED LIST changes: +GASTROGRAFIN SOLUTION 30ML As Ordered ONE; +ISOVUE-370 76% 100ML VIAL As Ordered ONE
== END ==
LOC: M RAD 14:32
PROVIDERS: ATTEND Family Medicine
DX: K57.80 Diverticulitis of intestine, part unspecified, with perforation and abscess without bleeding (principal)
CPT/HCPCS: 74177; Q9963; Q9967

== ENCOUNTER → 2024-03-07 | Outpatient (REF) | payer OTHER ==
[~2024-03-07] MED LIST changes: -GASTROGRAFIN SOLUTION 30ML As Ordered ONE; -ISOVUE-370 76% 100ML VIAL As Ordered ONE
== END ==
LOC: M SFHCDERM 17:56
PROVIDERS: ATTEND Physician Assistant
DX: C44.319 Basal cell carcinoma of skin of other parts of face (principal)

== ENCOUNTER → 2024-08-02 | Outpatient (CLI) | payer OTHER | LOC: M WHC 12:55 | PROVIDERS: ATTEND Family Medicine | DX: Z12.31 Encounter for screening mammogram for malignant neoplasm of breast (principal); R92.313 Mammographic fatty tissue density, bilateral breasts ==

== ENCOUNTER → 2025-01-04 | Outpatient (REF) | payer MEDICARE | LOC: M SFHCDERM 15:31 | PROVIDERS: ATTEND Physician Assistant | DX: L82.1 Other seborrheic keratosis (principal) ==

== ENCOUNTER → 2025-06-13 | Outpatient (CLI) | payer MEDICARE | LOC: M WUC 11:53 | PROVIDERS: ATTEND Nurse Practitioner Family | DX: R07.89 Other chest pain (principal) ==